=== PATIENT | male | born 1990 | race Caucasian/White ===

== ENCOUNTER 2017-11-24 16:12 | Observation (INO) | payer SELFPAY, BC ==
[2017-11-24] MEDS: HYDROmorphONE 1 MG/ML SYG IV ×2 (17:07→17:44)
[2017-11-24] MEDS: ONDANSETRON 4 MG INJ IV ×2 (17:10→17:45)
[2017-11-24] MEDS: LIDOCAINE 1% (MDV) 10 ML INJ INJ (17:10)
[2017-11-24 18:15] LABS: ADD MAN DIFF? NO
[2017-11-24 18:18] LABS: BASOPHIL # 0.1 10^3/ul (0.0-0.1); BASOPHILS % 1.1 % (0.0-2.0); EOSINOPHILS # 0.1 10^3/ul (0.0-0.5); EOSINOPHILS % 0.8 % (0.0-7.0); HEMATOCRIT 44.9 % (42.0-52.0); HEMOGLOBIN 15.4 g/dl (14.0-18.0); LYMPHOCYTES # 1.8 10^3/ul (0.8-2.9); LYMPHOCYTES % 28.9 % (15.0-51.0); MEAN CORPUSCULAR HGB CONC 34.3 g/dl (32.0-37.0); MEAN CORPUSCULAR VOLUME 90.5 fl (82.0-101.0); MEAN PLATELET VOLUME 11.5 fl (7.4-10.4); MONOCYTE # 0.7 10^3/ul (0.3-0.9); MONOCYTES % 10.5 % (0.0-11.0); NEUTROPHIL # 3.7 10^3/ul (1.6-7.5); NEUTROPHILS % 58.4 % (39.0-77.0); PLATELET COUNT 250 10^3/UL (140-415); RED BLOOD COUNT 4.96 10^6/ul (4.70-6.10); RED CELL DISTRIBUTION WIDTH 12.6 % (11.5-14.5)
[2017-11-24 18:18] LABS: WHITE BLOOD COUNT 6.4 10^3/ul (4.8-10.8)
[2017-11-24 18:35] LABS: ANION GAP 16 (8-16); BLOOD UREA NITROGEN 10 mg/dl (7-20); CALCIUM 10.4 mg/dl (8.4-10.2); CARBON DIOXIDE 23 mmol/L (21-31); CHLORIDE 110 mmol/L (97-110); CREATININE 0.84 mg/dl (0.61-1.24); GLUCOSE 83 mg/dl (70-220); POTASSIUM 4.2 mmol/L (3.5-5.1); SODIUM 145 mmol/L (135-144)
[2017-11-24 18:39] LABS: INR 0.89; PROTIME 12.1 Sec (11.9-14.9); PT RATIO 0.9
[2017-11-24 18:40] LABS: PARTIAL THROMBOPLASTIN TIME 26.7 Sec (25.0-35.0)
[2017-11-24] MEDS ORDERED: ACETAMINOPHEN 325 MG TAB PO (20:00)
[2017-11-24] MEDS ORDERED: ONDANSETRON 4 MG INJ IV ×2 (20:00→22:30)
[2017-11-24] MEDS ORDERED: THROMBIN 5000 UNIT VIAL (20:34)
[2017-11-24] MEDS ORDERED: GELATIN SIZE 100 SPONGE (20:34)
[2017-11-24] MEDS ORDERED: FENTAnyl 50 MCG/ML VIAL (20:43)
[2017-11-24] MEDS ORDERED: MIDAZOLAM 1 MG/ML 2 ML INJ (20:58)
[2017-11-24] MEDS ORDERED: SUCCINYLCHOLINE CHLORIDE 100 MG/5 ML SYG IV (21:20)
[2017-11-24] MEDS ORDERED: CEFAZOLIN 1 GM INJ (21:20)
[2017-11-24] MEDS ORDERED: ROCURONIUM 50 MG INJ (21:20)
[2017-11-24] MEDS ORDERED: PROPOFOL 20 ML (21:20)
[2017-11-24] MEDS ORDERED: LIDOCAINE 100 MG SYRINGE (21:20)
[2017-11-24] MEDS ORDERED: SUGAMMADEX SODIUM 200 MG/2 ML VIAL IV (21:21)
[2017-11-24] MEDS: HEPARIN 1000 UNITS/ML 10 ML INJ (21:21)
[2017-11-24] MEDS ORDERED: DIPHENHYDRAMINE 50 MG INJ IV (22:30)
[2017-11-24] MEDS ORDERED: FENTAnyl 50 MCG/ML VIAL IV ×3 (22:30)
[2017-11-24] MEDS ORDERED: ALBUTEROL 0.083% (NEB) 2.5 MG/3 ML AMP HHN (22:30)
[2017-11-24] MEDS ORDERED: MEPERIDINE 25 MG INJ IV (22:30)
[2017-11-24] MEDS ORDERED: HYDROmorphONE 1 MG/5 ML IV SYRINGE IV ×2 (22:30)
[2017-11-24] MEDS: METOCLOPRAMIDE 10 MG INJ IV (22:58)
[2017-11-24] MEDS: HYDROmorphONE 1 MG/5 ML IV SYRINGE IV (22:58)
[2017-11-25] MEDS ORDERED: NACL 0.9% 3 ML SYG IV (01:30)
[2017-11-25] MEDS ORDERED: BISACODYL (EC) 5 MG TAB PO (01:30)
[2017-11-25] MEDS ORDERED: ONDANSETRON 4 MG INJ IV (01:30)
[2017-11-25] MEDS ORDERED: HYDROmorphONE 0.5 MG/0.5 ML SYG IV (01:30)
[2017-11-25] MEDS: SOD CHLORIDE 0.9% 1,000 ML IV (01:37)
[2017-11-25] MEDS: HYDROmorphONE 0.5 MG/0.5 ML SYG IV ×4 (01:37→13:15)
[2017-11-25 05:18] LABS: ADD MAN DIFF? NO
[2017-11-25 05:23] LABS: BASOPHIL # 0.1 10^3/ul (0.0-0.1); BASOPHILS % 0.4 % (0.0-2.0); EOSINOPHILS % 0.1 % (0.0-7.0); HEMATOCRIT 36.5 % (42.0-52.0); HEMOGLOBIN 12.3 g/dl (14.0-18.0); LYMPHOCYTES % 12.2 % (15.0-51.0); MEAN CORPUSCULAR HEMOGLOBIN 30.8 pg (29.0-33.0); MEAN CORPUSCULAR HGB CONC 33.7 g/dl (32.0-37.0); MEAN CORPUSCULAR VOLUME 91.5 fl (82.0-101.0); MEAN PLATELET VOLUME 11.1 fl (7.4-10.4); MONOCYTE # 1.5 10^3/ul (0.3-0.9); MONOCYTES % 8.9 % (0.0-11.0); NEUTROPHIL # 12.7 10^3/ul (1.6-7.5); NEUTROPHILS % 78.1 % (39.0-77.0); PLATELET COUNT 198 10^3/UL (140-415); RED BLOOD COUNT 3.99 10^6/ul (4.70-6.10); RED CELL DISTRIBUTION WIDTH 12.8 % (11.5-14.5)
[2017-11-25 05:23] LABS: WHITE BLOOD COUNT 16.3 10^3/ul (4.8-10.8)
[2017-11-25 05:37] LABS: HEMOGLOBIN A1C 5.5 % (0-5.9)
[2017-11-25 05:44] LABS: ALANINE AMINOTRANSFERASE 40 IU/L (13-69); ALBUMIN 3.8 g/dl (3.3-4.9); ALBUMIN/GLOBULIN RATIO 1.52; ALKALINE PHOSPHATASE 59 IU/L (42-121); ANION GAP 10 (8-16); ASPARTATE AMINO TRANSFERASE 32 IU/L (15-46); BILIRUBIN,INDIRECT 1.6 mg/dl (0-1.1); BILIRUBIN,TOTAL 1.6 mg/dl (0.2-1.3); BLOOD UREA NITROGEN 5 mg/dl (7-20); CALCIUM 8.9 mg/dl (8.4-10.2); CARBON DIOXIDE 26 mmol/L (21-31); CHLORIDE 109 mmol/L (97-110); CREATININE 0.67 mg/dl (0.61-1.24); GLUCOSE 109 mg/dl (70-220); POTASSIUM 3.4 mmol/L (3.5-5.1); SODIUM 142 mmol/L (135-144); TOTAL PROTEIN 6.3 g/dl (6.1-8.1)
[2017-11-25] MEDS ORDERED: hydrALAzine 20 MG INJ IV (14:30)
[2017-11-25] MEDS: POTASSIUM CHLORIDE (SR) 20 MEQ TAB PO (16:06)
[2017-11-25] MEDS: HYDROCODONE/APAP (5/325) TAB PO ×2 (16:08→22:16)
[2017-11-26] MEDS: HYDROCODONE/APAP (5/325) TAB PO ×3 (04:19→19:56)
[2017-11-26 05:35] LABS: ADD MAN DIFF? NO
[2017-11-26 05:41] LABS: BASOPHIL # 0.1 10^3/ul (0.0-0.1); BASOPHILS % 0.9 % (0.0-2.0); EOSINOPHILS # 0.1 10^3/ul (0.0-0.5); EOSINOPHILS % 0.6 % (0.0-7.0); HEMATOCRIT 39.8 % (42.0-52.0); HEMOGLOBIN 13.4 g/dl (14.0-18.0); LYMPHOCYTES # 2.2 10^3/ul (0.8-2.9); LYMPHOCYTES % 20.9 % (15.0-51.0); MEAN CORPUSCULAR HEMOGLOBIN 30.7 pg (29.0-33.0); MEAN CORPUSCULAR HGB CONC 33.7 g/dl (32.0-37.0); MEAN CORPUSCULAR VOLUME 91.1 fl (82.0-101.0); MEAN PLATELET VOLUME 10.8 fl (7.4-10.4); MONOCYTE # 1.2 10^3/ul (0.3-0.9); MONOCYTES % 11.3 % (0.0-11.0); PLATELET COUNT 201 10^3/UL (140-415); RED BLOOD COUNT 4.37 10^6/ul (4.70-6.10); RED CELL DISTRIBUTION WIDTH 12.5 % (11.5-14.5)
[2017-11-26 05:41] LABS: WHITE BLOOD COUNT 10.6 10^3/ul (4.8-10.8)
[2017-11-26 06:09] LABS: ALANINE AMINOTRANSFERASE 39 IU/L (13-69); ALBUMIN 4.3 g/dl (3.3-4.9); ALBUMIN/GLOBULIN RATIO 1.43; ALKALINE PHOSPHATASE 68 IU/L (42-121); ANION GAP 13 (8-16); ASPARTATE AMINO TRANSFERASE 28 IU/L (15-46); BLOOD UREA NITROGEN 7 mg/dl (7-20); CALCIUM 9.5 mg/dl (8.4-10.2); CARBON DIOXIDE 27 mmol/L (21-31); CHLORIDE 106 mmol/L (97-110); CREATININE 0.69 mg/dl (0.61-1.24); GLUCOSE 88 mg/dl (70-220); MAGNESIUM 1.7 mg/dl (1.7-2.5); POTASSIUM 4.1 mmol/L (3.5-5.1); SODIUM 142 mmol/L (135-144); TOTAL PROTEIN 7.3 g/dl (6.1-8.1)
[2017-11-26] MEDS: HYDROmorphONE 0.5 MG/0.5 ML SYG IV (20:53)
[2017-11-27] MEDS: HYDROmorphONE 0.5 MG/0.5 ML SYG IV ×4 (01:39→18:31)
[2017-11-27] MEDS: DOCUSATE SODIUM 100 MG CAP PO (14:27)
[2017-11-28] MEDS: HYDROmorphONE 0.5 MG/0.5 ML SYG IV ×2 (00:19→04:52)
[2017-11-28] MEDS: DOCUSATE SODIUM 100 MG CAP PO (04:54)
[2017-11-28] MEDS: ACETAMINOPHEN 325 MG TAB PO (09:57)
== END 2017-11-28 13:50 | disposition home or self-care (01) ==
LOC: MS1 11-25 01:15 → E/R 16:12 → REC 20:00
DX: S55.011A Laceration of ulnar artery at forearm level, right arm, initial encounter (principal); S54.01XA Injury of ulnar nerve at forearm level, right arm, initial encounter; W25.XXXA Contact with sharp glass, initial encounter; Y93.89 Activity, other specified
CPT/HCPCS: 15736; 36415; 73090-RT; 80048; 80053; 83036; 83735; 84443; 85025; 85610; 85730; 96374; 96375; 96376; 97167; 99217; 99285-25